=== PATIENT | female | born 1975 | race Caucasian/White ===

== ENCOUNTER → 2021-02-28 | Outpatient (CLI) | payer OTHER | LOC: LAB 10:03 | DX: R07.89 Other chest pain (principal); R06.02 Shortness of breath; Z88.2 Allergy status to sulfonamides | CPT/HCPCS: 36415; 71046; 83880; 84484; 85379 ==

== ENCOUNTER → 2021-03-15 | Outpatient (CLI) | payer OTHER | LOC: HEART 5 08:00 | DX: R00.2 Palpitations (principal) ==

== ENCOUNTER → 2021-04-13 | Outpatient (CLI) | payer OTHER | LOC: HEART 5 15:14 | DX: R07.9 Chest pain, unspecified (principal) | CPT/HCPCS: 93306 ==